=== PATIENT | male | born 1950 | race Caucasian/White ===

== ENCOUNTER 2022-02-27 18:04 | Emergency (ER) | payer BC, MEDICARE, OTHER ==
[~2022-02-27] VITALS: Ht 182.9 cm; Wt 80.7 kg
[2022-02-27 18:16] VITALS: BP_SYST 169
--- NOTE | 2022-02-27 18:22 | NUR ---
Triaged pt and placed pt in waiting room until a bed becomes available. Dr. Juan José laird.
[2022-02-27 19:40] VITALS: BP_SYST 169
--- NOTE | 2022-02-27 19:40 | NUR ---
PT RCOMPLAINT OF STOMACH PAIN WITH BLADDER DISTENSION DUE TO RETENTION FROM BNP. PT REPORTS NOT TAKING HIS MEDICATION AND BEING UNABLE TO URINATE SINCE 11 AM. PT STATED HE HAD SURGERY TODAY FOR A HERNIA. UPON PALPATION, PT NOTED TO HAVE LAPOSCOPIC SURGERY SCARS INTACT. PT BLADDER DISTENDED. MD SEGOVIA NOTIFIED. SHANE CATHETER PLACED INTO PT BLADDER IN TRIGE ROOM WITH A LEG BAG. PT REPORTED RELIEF, YELOOW CLEAR URINE ABOUT 450 ML DRAINED FROM PT BLADDER.
--- NOTE | 2022-02-27 21:55 | NUR ---
Note heriberto in ED - 02/27/22 at 2338 by [email or web address] PT DISCHARGED WITH SHANE CATHETER WITH LEG BAG ATTACHEMENT. PT REPORTS REILEF OF URINARY RETENTION AND BLADDER PRESSURE. PT ADVISED TO FOLLOW UP WITH UROLOGIST BY WEDNESDAY FOR FOLLOW UP.
== END 2022-02-27 21:56 | disposition home or self-care (01) ==
LOC: SED 18:04
DX: K59.00 Constipation, unspecified (principal); N32.89 Other specified disorders of bladder; Z53.21 Procedure and treatment not carried out due to patient leaving prior to being seen by health care provider

== ENCOUNTER 2022-02-28 14:40 | Emergency (ER) | payer MEDICARE, OTHER ==
[~2022-02-28] VITALS: Ht 182.9 cm; Wt 80.7 kg
[2022-02-28 15:10] VITALS: BP_SYST 146
--- NOTE | 2022-02-28 15:10 | NUR ---
Patient to ER bed 5 to gown for evaluation. Side rails up. Report given to Slava MOSLEY.
--- NOTE | 2022-02-28 15:15 | NUR ---
ER Dr. Can at bedside examining patient.
--- NOTE | 2022-02-28 15:20 | NUR ---
Patient one day post-op right inguinal hernia repair BIB complaining of difficulty draining catheter bag. Bag was changed and patient was provided catheter care education.
--- NOTE | 2022-02-28 15:50 | NUR ---
Patient given written and verbal discharge instructions and verbalizes understanding. ER Dr. Juan José TELLES discussed with patient the results and treatment provided. Patient in stable condition. ID arm band removed. Patient educated on catherter management and to follow up with PMD. Opportunity for questions provided and answered.
[2022-02-28 15:59] VITALS: BP_SYST 148
== END 2022-02-28 15:50 | disposition home or self-care (01) ==
LOC: SED 14:40
DX: Z13.9 Encounter for screening, unspecified (principal)
CPT/HCPCS: 99281; 99284